=== PATIENT | male | born 1970 | race American Indian/Alaskan Native ===

== ENCOUNTER 2020-08-30 12:59 | Emergency (ER) | payer MEDICARE ==
--- NOTE | 2020-08-30 13:58 | Emergency Department Report ---
ED General Adult HPI - General Chief complaint: High BP Stated complaint: HBP Time Seen by Provider: 08/30/20 13:53 Source: patient, EMS Mode of arrival: Ambulatory Limitations: No Limitations - History of Present Illness Initial comments: This is a 50-year-old male he is currently a resident of [facility] where he has been since August 22. Patient has history of high blood pressure he is sent here for evaluation of his blood pressure on arrival his BP is 162/110 patient states he has not been getting his usual dose of his medications which i nclude clonidine 0.3 mg twice daily amlodipine 10 mg daily. He states he is only getting clonidine 0.1 once a day. He was sent for evaluation patient denies chest pain shortness of breath no headache no dizziness no weakness he has no complaints. Patient in no current distress Radiation: non-radiation Severity scale (0 -10): 0 Improves with: none Worsens with: none Associated Symptoms: denies other symptoms Treatments Prior to Arrival: none - Related Data Home Medications Medication Instructions Recorded Confirmed Last Taken cloNIDine [Catapres] 0.3 mg PO BID 11/15/14 09/19/17 Unknown Previous Rx's Medication Instructions Recorded Last Taken Type amLODIPine 10 mg PO DAILY #90 tablet 06/08/14 Unknown Rx Cyclobenzaprine HCl [Flexeril 5 MG 5 mg PO Q8HR #20 tablet 03/16/15 Unknown Rx TAB] Famotidine [Pepcid] 20 mg PO BID tablet 09/22/17 Unknown Rx Magnesium Hydroxide [Milk of 30 ml PO Q4H PRN oral.liqd 09/22/17 Unknown Rx Magnesia] QUEtiapine [SEROquel] 200 mg PO QHS tablet 09/22/17 Unknown Rx amLODIPine 10 mg PO DAILY tablet 09/22/17 Unknown Rx bisacodyL [Dulcolax suppos] 10 mg LA QDAY PRN supp.rect 09/22/17 Unknown Rx hydrALAZINE [Apresoline TAB] 100 mg PO TID tab 09/22/17 Unknown Rx labetaloL [Labetalol 200mg TAB] 200 mg PO BID tablet 09/22/17 Unknown Rx amLODIPine 10 mg PO DAILY #30 tab 08/30/20 Unknown Rx cloNIDine [Catapres] 0.3 mg PO BID #60 tablet 08/30/20 Unknown Rx Allergies Allergy/AdvReac Type Severity Reaction Status Date / Time No Known Allergies Allergy Verified 03/16/15 10:21 ED Review of Systems ROS: Stated complaint: HBP Other details as noted in HPI Comment: All other systems reviewed and negative Constitutional: no symptoms reported Eyes: as per HPI Respiratory: no symptoms reported Endocrine: no symptoms reported Gastrointestinal: denies: abdominal pain, nausea, vomiting Genitourinary: denies: urgency, dysuria Musculoskeletal: denies: back pain, joint swelling Neurological: denies: headache, weakness, numbness, paresthesias, confusion, abnormal gait Hematological/Lymphatic: denies: easy bleeding, easy bruising, swollen glands ED Past Medical Hx - Past Medical History Previous Medical History?: Yes Hx Hypertension: Yes Hx CVA: No Hx Heart Attack/AMI: No Hx Congestive Heart Failure: No Hx Diabetes: No Hx Deep Vein Thrombosis: No Hx Pulmonary Embolism: No Hx GERD: No Hx Liver Disease: No Hx Renal Disease: No Hx Sickle Cell Disease: No Hx Arthritis: No Hx Headaches / Migraines: No Hx Seizures: No Hx Kidney Stones: No Hx Psychiatric Treatment: Yes (bipolar; DEPRESSION) Hx Asthma: Yes Hx COPD: No Hx Tuberculosis: No Hx Dementia: No Hx HIV: No Additional medical history: substance abuse - Surgical History Past Surgical History?: Yes Hx Coronary Stent: No Hx Open Heart Surgery: No Hx Pacemaker: No Hx Internal Defibrillator: No Hx Cholecystectomy: No Hx Appendectomy: No Hx Breast Surgery: No Additional Surgical History: right knee surgery 2006. - Social History Smoking Status: Never Smoker Substance Use Type: Alcohol, Cocaine, Marijuana - Medications Home Medications: Home Medications Medication Instructions Recorded Confirmed Last Taken Type amLODIPine 10 mg PO DAILY #90 tablet 06/08/14 09/19/17 Unknown Rx cloNIDine [Catapres] 0.3 mg PO BID 11/15/14 09/19/17 Unknown History Cyclobenzaprine HCl [Flexeril 5 MG 5 mg PO Q8HR #20 tablet 03/16/15 09/19/17 Unknown Rx TAB] Famotidine [Pepcid] 20 mg PO BID tablet 09/22/17 Unknown Rx Magnesium Hydroxide [Milk of 30 ml PO Q4H PRN oral.liqd 09/22/17 Unknown Rx Magnesia] QUEtiapine [SEROquel] 200 mg PO QHS tablet 09/22/17 Unknown Rx amLODIPine 10 mg PO DAILY tablet 09/22/17 Unknown Rx bisacodyL [Dulcolax suppos] 10 mg LA QDAY PRN supp.rect 09/22/17 Unknown Rx hydrALAZINE [Apresoline TAB] 100 mg PO TID tab 09/22/17 Unknown Rx labetaloL [Labetalol 200mg TAB] 200 mg PO BID tablet 09/22/17 Unknown Rx amLODIPine 10 mg PO DAILY #30 tab 08/30/20 Unknown Rx cloNIDine [Catapres] 0.3 mg PO BID #60 tablet 08/30/20 Unknown Rx ED Physical Exam - General Limitations: No Limitations General appearance: alert, in no apparent distress - Head Head exam: Present: normal inspection - Eye Eye exam: Present: normal appearance - ENT ENT exam: Present: normal exam - Respiratory Respiratory exam: Present: normal lung sounds bilaterally. Absent: respiratory distress, wheezes, rales - Cardiovascular Cardiovascular Exam: Present: regular rate, normal heart sounds - Extremities Exam Extremities exam: Present: normal inspection, normal capillary refill. Absent: full ROM - Back Exam Back exam: Present: normal inspection - Neurological Exam Neurological exam: Present: alert, oriented X3 - Psychiatric Psychiatric exam: Present: normal affect - Skin Skin exam: Present: warm, dry, intact, normal color ED Course Vital Signs 08/30/20 08/30/20 13:03 14:22 Temperature 98.1 F 98.2 F Pulse Rate 76 76 Respiratory 20 18 Rate Blood Pressure 162/110 Blood Pressure 157/109 [Right] O2 Sat by Pulse 100 100 Oximetry ED Medical Decision Making - Medical Decision Making 50-year-old male currently admitted to [facility]. States he is not receiving his blood pressure medication as usual. He is only taking clonidine 0.1 mg once a day along with amlodipine 10. He states that his usual dose is clonidine 0.3 mg twice daily. His blood pressure is 160/112. He denies chest pain no shortness of breath no weakness no dizziness, no headache. Plan is for patient to return to [facility] prescription is given for clonidine 0.3 mg twice daily and amlodipine 10 mg p.o. daily - Differential Diagnosis Hypertension Critical care attestation.: If time is entered above; I have spent that time in minutes in the direct care of this critically ill patient, excluding procedure time. ED Disposition Clinical Impression: HTN (hypertension) Qualifiers: Hypertension type: unspecified Qualified Code(s): I10 - Essential (primary) hypertension Disposition: DC- TO HOME OR SELFCARE Is pt being admited?: No Does the pt Need Aspirin: No Condition: Stable Instructions: Hypertension, Adult, [id number], Managing Your Hypertension, Hypertension (ED) Additional Instructions: Take your blood pressure medicine Acacian as prescribed. Adhere to a low-sodium diet. Drink plenty fluids rest stay away from caffeinated beverages Prescriptions: amLODIPine 10 mg PO DAILY #30 tab cloNIDine [Catapres] 0.3 mg PO BID #60 tablet Referrals: HUGH YORK MD [Staff Physician] - 3-5 Days Time of Disposition: 14:06
[2020-08-30 14:22] VITALS: BP 157/109
== END 2020-08-30 14:26 | disposition home or self-care (01) ==
LOC: ED 12:59
DX: I10 Essential (primary) hypertension (principal); F31.9 Bipolar disorder, unspecified; J45.909 Unspecified asthma, uncomplicated; F12.90 Cannabis use, unspecified, uncomplicated; F14.90 Cocaine use, unspecified, uncomplicated; Z98.890 Other specified postprocedural states; Z79.899 Other long term (current) drug therapy
CPT/HCPCS: 99283